=== PATIENT | male | born 2000 | race Caucasian/White ===

== ENCOUNTER 2023-07-21 22:28 | Emergency (ER) | payer BC, SELFPAY ==
[2023-07-21 22:33] VITALS: BP 146/91
[2023-07-21 22:57] VITALS: BP 148/93
[2023-07-21 23:00] VITALS: BP 136/84
--- NOTE | 2023-07-21 23:12 | ED.GENMED ---
History of Present Illness
<GUME Pierce - Last Filed: 07/22/23 05:41>
General
Chief Complaint: Chest Pain
Source: patient
Exam Limitations: none
Time Seen by Provider: 07/21/23 22:57
Nursing documentation reviewed up to this point in time: agreed with
Travel History
Have you had any contact with someone who has COVID-19?: No
Do you have any symptoms of coronavirus? Fever > 100 degrees, chills, cough, shortness of breath, sore throat, loss of taste or smell, muscle aches, or headache?: No
History of Present Illness
History of Present Illness:
This is a 23 year old male who presents to the ED c/o CP x 2 weeks. Pt states the pain feels like a constant mild pressure. Pt states the pain started off in the middle of his chest, but the pain has now moved to the left side of his chest. Pt has
tried Advil for the pain which has not helped. He denies any provocative or alleviating factors and rates the pain a 5/10 in severity. He has never had CP like this in the past. Pt has also had a MISTRY today which he thinks is due to caffeine
withdrawal since he has been avoiding caffeine to try and help his chest pain. Pt took tylenol around 11 hours ago, but that did not help his MISTRY. He denies any pleuritic CP, fever, chills, SOB, palpitations, n/v, lightheadedness, dizziness, reflux,
abdominal pain, or leg swelling.
Pt states he has anxiety but has never been formally diagnosed. He denies any hx of asthma or eczema. Denies any alcohol, drug use, or smoking.
Past History
<GUME Pierce - Last Filed: 07/22/23 05:41>
Past History
ED Past Medical History: None
ED Past Surgical History: None
Patient has exhibited threatening behavior?: No
Social History
Tobacco: Non-smoker
Alcohol: None
Drug: None
Review of Systems
<GUME Pierce - Last Filed: 07/22/23 05:41>
Review of Systems
All Other Systems: ROS reviewed and negative except as documented in HPI and ROS
Constitutional: Reports no symptoms; Denies fever or chills
EENT: Reports no symptoms
Respiratory: Reports no symptoms; Denies trouble breathing
Cardiac: Reports chest pain; Denies palpitations
ABD/GI: Reports no symptoms; Denies abdominal pain, nausea or vomiting
: Reports no symptoms
Musculoskeletal: Reports no symptoms; Denies edema
Skin: Reports no symptoms
Neurological: Reports headache; Denies dizzy
Psychiatric: Reports anxiety
Phy Exam
<GUME Pierce - Last Filed: 07/22/23 05:41>
General Physical Exam
General Presentation: well appearing and no apparent distress
General age: appears stated age
General Skin: warm and dry
General Habitus: normal
General Mental: alert
General Hydration: appears well hydrated
ENT Exam
ENT Exam: pharynx normal, neck supple and normocephalic
Eye Exam
Eye Exam: PERRL and conjunctiva normal
Cardiovascular Exam
Cardiovascular Exam: regular rate/rhythm, no edema, no murmur, normal peripheral pulses and other (chest wall nontender)
Heart Sounds: normal
Pulmonary Exam
Pulmonary Exam: lungs clear, no respiratory distress, no crackles, no wheezing and no cough
Cough: no cough
Gastrointestinal Exam
Gastrointestinal Exam: normal bowel sounds, non tender, soft and non distended
Neurological Exam
Neurological Exam: alert and oriented x3
Musculoskeletal Exam
Musculoskeletal Exam: full ROM and no edema
Skin Exam
Skin Exam: normal color and warm/dry
Psychiatric Exam
Psychiatric Exam: normal mood/affect
Scores
<GUME Pierce - Last Filed: 07/22/23 05:41>
Heart Score for Chest Pain Patients
STEMI patient?: No
History: Slightly or Non-Suspicious
ECG: Normal
Age: </= 45 years
Risk Factors: No Risk Factors
Troponin: </= Normal Limit
Heart Score for Chest Pain Patients: 0
Heart Score Risk: 2.5% MACE over next 6 weeks
PERC Rule Criteria
PERC Score: 0
PE can be excluded by PERC: Yes
<Jennifer Mejia MD - Last Filed: 07/22/23 00:15>
PERC Rule Criteria
Age <50 years: Yes
HR <100 bpm: Yes
Room air oxygen sat >94%: Yes
History of DVT or PE: No
Recent trauma or surgery: No
Hemoptysis: No
Exogenous estrogen: No
Clinical signs suggestive of DVT: No
: No
Considered low risk for PE: Yes
PERC Score: 0
PE can be excluded by PERC: Yes
Course
<GUME Pierce - Last Filed: 07/22/23 05:41>
Orders/Labs/Results
Orders:
Orders
07/21/23 22:29
Electrocardiogram (*1) Urgent
Reason for Study: Chest Pain
EKG- Treatment ONCE
07/21/23 23:51
Complete Blood Count/With Diff Urgent
Comprehensive Metabolic Panel Urgent
Troponin I Urgent
07/22/23 00:01
CR Chest - 2 Views Stat
Reason For Exam: cp
Abnormal Lab Results
07/21/23
23:51
MCHC 37.3 H g/dL
(33.0-37.0)
RDW 11.3 L %
(11.5-14.5)
Total Bilirubin 2.1 H mg/dl
(0.2-1.3)
07/21/23 23:51
07/21/23 23:51
Vital Signs
Initial and Last Documented VS:
Initial Vital Signs
Temp Pulse Resp BP Pulse Ox
98.4 F 89 18 146/91 99
07/21/23 22:33 07/21/23 22:33 07/21/23 22:33 07/21/23 22:33 07/21/23 22:33
Last Documented Vital Signs
Temp Pulse Resp BP Pulse Ox
98.4 F 83 19 134/68 99
07/21/23 22:33 07/22/23 00:52 07/22/23 00:52 07/22/23 00:52 07/21/23 22:33
<Jennifer Mejia MD - Last Filed: 07/22/23 00:15>
Orders/Labs/Results
Orders:
Orders
07/21/23 22:29
Electrocardiogram (*1) Urgent
Reason for Study: Chest Pain
EKG- Treatment ONCE
07/21/23 23:51
Complete Blood Count/With Diff Urgent
Comprehensive Metabolic Panel Urgent
Troponin I Urgent
07/22/23 00:01
CR Chest - 2 Views Stat
Reason For Exam: cp
Abnormal Lab Results
07/21/23
23:51
MCHC 37.3 H g/dL
(33.0-37.0)
RDW 11.3 L %
(11.5-14.5)
Total Bilirubin 2.1 H mg/dl
(0.2-1.3)
07/21/23 23:51
07/21/23 23:51
Vital Signs
Initial and Last Documented VS:
Initial Vital Signs
Temp Pulse Resp BP Pulse Ox
98.4 F 89 18 146/91 99
07/21/23 22:33 07/21/23 22:33 07/21/23 22:33 07/21/23 22:33 07/21/23 22:33
Last Documented Vital Signs
Temp Pulse Resp BP Pulse Ox
98.4 F 83 19 134/68 99
07/21/23 22:33 07/22/23 00:52 07/22/23 00:52 07/22/23 00:52 07/21/23 22:33
<GUME Pierce - Last Filed: 07/22/23 05:41>
*Critical Care Note
Total Time (30-74mins, 75-104mins- exclusive of procedures): Not Applicable
ED Attending Note
<GUME Pierce - Last Filed: 07/22/23 05:41>
-
Portions of this chart may have been created with voice recognition software.� Occasional wrong word or��sound alike� substitutions may have occurred due to the inherent limitations of voice recognition software.
<Jennifer Mejia MD - Last Filed: 07/22/23 00:15>
ED Attending Note
Patient seen and examined by attending physician: Yes
I performed the substantive portion of visit, reviewed & personally made and approve the management plan that is documented in note by myself or PARKER.: Yes
I performed a history and physical exam of patient and discussed management with resident, I reviewed resident's note and agree with documented findings and plan of care.: Yes
ED Attending Note:
23 yr old male with c/o constant chest 'pressure' that started two weeks, 'mild', gradual onset, without exacerbating relieving factors. He came in today because for the first time the pain was a little bit more to the left side as opposed to being
central. He denies radiation, or pleuritic nature to the pain. He denies recent trauma, immobilization, leg swelling, or personal or family history of DVT. He does report history of cardiac disease in his uncle but he is unclear at what age this
started. He denies fever, chills, cough, sore throat, rhinorrhea, nausea, vomiting, neck pain, back pain, headache, dizziness. Patient states that when increasing his activity there was no change to the quality of the pain, and has been constantly
there every moment for the last 2 weeks again described as 'mild'. On exam, GENERAL: Alert , in no apparent distress
EYE: pupils equal and reactive
NECK: Supple, no significant adenopathy.
ENT: o/p clr, mmm.
CARDIAC: Regular rate and rhythm, chest wall nontender to palpation.
LUNGS: Clear breath sounds bilaterally, no acute respiratory distress, no wheezes/rales/rhonchi
ABDOMEN: Soft, without focal tenderness, no r/g, no cvat
NEUROLOGICAL: Alert and oriented, no focal neuro deficits
SKIN: Warm and dry, skin intact.
MUSCULOSKELETAL: No edema, well perfused.
PSYCH: Normal and appropriate interaction.
Patient presents to the Emergency Department with chest pain
Number and Complexity of Problems Addressed at the Encounter
� Chronic conditions affecting care:
� Acute Exacerbation and/or Progression of Chronic Illness:
� Differential Diagnosis includes: But not limited to nonspecific chest discomfort, pericarditis, ACS, pneumothorax, PE, etc.
Amount and/or Complexity of Data to be Reviewed and Analyzed
� I performed an independent evaluation of and my interpretation is:
EKG: Read by me, normal sinus rhythm, normal rate, normal axis, no acute ischemia
CT:
Xrays: cxr read by me nad, no ptx, heart size nl
Laboratory Studies:
Other:
� Review of other/old records reveals:
� Clinical information was obtained by an independent historian:
� Prescriptions/Medications Considered but not given:
� Further testing considered but not performed:
Risk of Complications and/or Morbidity or Mortality of Patient Management
� Social determinants of health affecting care:
� Discussion with other providers (PCP, Hospitalists, Consultants, etc):
� Escalation of care including admission/observation vs risk of discharge considered:
Discharge Plan
Departure
Patient Disposition: Home (Routine Discharge)
Patient with high blood pressure during this ER visit?: Yes
Condition: Good
Discharge Problem:
Chest pain
Instructions: Chest Pain PCP Follow Up, BLOOD PRESSURE
Prescriptions:
No Action
metronidazole 500 MG tablet
500 mg PO BID
dicyclomine 20 MG tablet
20 mg PO .Q6
Minicycline
1 tab PO HS
Referrals:
Abdiaziz Nguyen MD [Family Provider] - Follow up in 2-3 days
Activity Restrictions/Additional Instructions:
IF YOU DEVELOP INCREASING/NEW PAIN, FEVER, TROUBLE BREATHING, DIZZINESS, VOMITING, SWELLING, GET WORSE, DO NOT GET BETTER, OR OTHER WORRISOME SIGNS, GO TO THE ER IMMEDIATELY!
Interventions
Interventions:
*Risk Screen - Suicide Last Done: 07/21/23 22:33
*General Assessment Last Done: 07/21/23 22:33
*Neglect/Abuse Screening Last Done: 07/21/23 22:33
ED- Fall Risk Assessment Last Done: 07/22/23 00:46
*ED COVID-19 Vaccine History Last Done: 07/22/23 00:54
*Nursing Disposition Last Done: 07/22/23 01:00
ED- Cardiac Assessment Last Done: 07/22/23 00:46
Discharge Date and Time
Discharge Date/Time: 07/22/23 01:02
[2023-07-22] VITALS: BP 123/72
[2023-07-22 00:08] LABS: % Basophils 0.5 % (0-2); % Eosinophils 0.4 % (0-6); % Immature Granulocytes 0.2 % (0-0.5); % Lymphocytes 38.7 % (20.5-51.1); % Neutrophils 52.2 % (42.2-75.2); Absolute Lymphocytes 2.2 10^3/uL (1.2-3.4); Absolute Monocytes 0.5 10^3/uL (0.1-0.6); Hematocrit 41.6 % (39.0-52.0); Hemoglobin 15.5 g/dL (13.0-18.0); Mean Corp Hgb Conc. 37.3 g/dL (33.0-37.0); Mean Corpuscular Hgb 30.9 pg (27.0-31.0); Mean Platelet Volume 10.2 fL (7.4-10.4); Nucleated Red Blood Cells % 0 % (-); Platelet Count 236 10^3/uL (130-400); Red Blood Cell Count 5.01 10^6/uL (4.70-6.10); Red Cell Dist. Width 11.3 % (11.5-14.5); White Blood Cell Count 5.6 10^3/uL (4.8-10.8)
[2023-07-22 00:17] LABS: ALT (SGPT) 41 U/L (0-50); AST (SGOT) 29 U/L (17-59); Albumin 4.5 g/dl (3.5-5.0); Alkaline Phosphatase 66 U/L (38-126); Blood Urea Nitrogen 18 mg/dl (9-20); Calcium 9.9 mg/dl (8.4-10.2); Carbon Dioxide 29 mmol/L (22-30); Chloride 103 mmol/L (98-107); Glucose 89 mg/dl (70-99); Sodium 136 mmol/L (135-145); Total Bilirubin 2.1 mg/dl (0.2-1.3); eGFR > 60.00
[2023-07-22 00:30] LABS: Troponin I < 0.012 ng/ml
[2023-07-22 00:52] VITALS: BP 134/68
== END 2023-07-22 01:02 | disposition home or self-care (01) ==
LOC: EMR 22:28
PROVIDERS: EMERGENCY PHYSICIAN Emergency Medicine; FAMILY PHYSICIAN Family Medicine
DX: R07.9 Chest pain, unspecified (principal); R51.9 Headache, unspecified; R03.0 Elevated blood-pressure reading, without diagnosis of hypertension; F41.9 Anxiety disorder, unspecified
CPT/HCPCS: 99285; 71046; 80053; 84484; 85025; 93005